=== PATIENT | female | born 1960 | race Caucasian/White ===

== ENCOUNTER 2018-02-04 13:11 | Emergency (ER) | payer BC ==
[2018-02-04] MEDS ORDERED: Sodium Chloride 0.9% 1,000 ML IV STA (13:35)
[2018-02-04] MEDS ORDERED: Sodium Chloride 0.9% 10 ML Syringe FLUSH PRN (13:35)
[2018-02-04] MEDS ORDERED: Diatrizoate Meglumine/Diatrizoate Sodium 37% 120 ML Bottle PO ONE (15:19)
[2018-02-04] MEDS ORDERED: Iopamidol 612 MG/ML 100 ML Bottle IVPUSH ONE (15:19)
--- NOTE | 2018-02-04 16:16 | EDM.PDOC ---
ED HPI GENERAL MEDICAL PROBLEM - General Chief Complaint: Cardiovascular Problem Stated Complaint: NAUSEA & DIZZY Time Seen by Provider: 02/04/18 13:26 Source of Information: Reports: Patient History Limitations: Reports: No Limitations - History of Present Illness INITIAL COMMENTS - FREE TEXT/NARRATIVE: The patient presents with dizziness and lightheaded feeling. She says this has been going on for a few days. She has been dealing with UTIs for the past few months. She had been on 2 antibiotic. One in November and one in December. She was recently put on some flagyal for another infection. I looked at her culture and it was gardnerella vaginosis. She also has some nausea but no vomiting. She had a little chest pain earlier today. She has some lower abdominal pain at times. She has no fever, chills, cough, or shortness of breath. Onset: Gradual Duration: Day(s): Location: Reports: Chest Quality: Reports: Pressure Severity: Mild Improves with: Reports: None Worsens with: Reports: None Associated Symptoms: Reports: Chest Pain, Nausea/Vomiting. Denies: Cough, Fever /Chills, Headaches, Shortness of Breath Bladder Pain Score (Numeric/FACES): 6 - Related Data Allergies Allergy/AdvReac Type Severity Reaction Status Date / Time ciprofloxacin [From Cipro] Allergy Anxiety Verified 02/04/18 13:23 Home Meds: Home Meds metroNIDAZOLE [Flagyl] 500 mg PO BID 02/04/18 [History] traMADol HCl [Ultram] 50 mg PO Q6HR PRN #20 tablet 02/04/18 [Rx] Past Medical History - Past Health History Medical/Surgical History: Denies Medical/Surgical History Social & Family History - Tobacco Use Smoking Status *Q: Current Every Day Smoker Years of Tobacco use: 30 Packs/Tins Daily: 0.5 - Recreational Drug Use Recreational Drug Use: No ED ROS GENERAL - Review of Systems Review Of Systems: See Below Constitutional: Reports: No Symptoms HEENT: Reports: No Symptoms Respiratory: Reports: No Symptoms Cardiovascular: Reports: Chest Pain Endocrine: Reports: No Symptoms GI/Abdominal: Reports: Abdominal Pain, Nausea. Denies: Diarrhea, Vomiting : Reports: No Symptoms Musculoskeletal: Reports: No Symptoms ED EXAM, GENERAL - Physical Exam Exam: See Below Exam Limited By: No Limitations General Appearance: Alert, No Apparent Distress Ears: Normal External Exam Nose: Normal Inspection Head: Atraumatic, Normocephalic Neck: Normal Inspection Respiratory/Chest: No Respiratory Distress, Lungs Clear, Normal Breath Sounds Cardiovascular: Regular Rate, Rhythm, No Edema, No Murmur GI/Abdominal: Soft, Non-Tender, No Organomegaly, No Mass Back Exam: Normal Inspection Extremities: Normal Inspection EKG INTERPRETATION EKG Date: 02/04/18 Time: 13:22 Rhythm: NSR Rate (Beats/Min): 74 [place]: Normal P-Wave: Present QRS: Normal ST-T: Normal QT: Normal Course - Vital Signs Last Recorded V/S: Last Vital Signs Temp 98.7 F 02/04/18 13:21 Pulse 86 02/04/18 13:21 Resp 16 02/04/18 13:21 BP Pulse Ox 98 02/04/18 13:21 - Orders/Labs/Meds Orders: Active Orders 24 hr Category Date Time Status EKG Documentation Completion [RC] STAT Care 02/04/18 13:35 Active Peripheral IV Care [RC] . DIRECTED Care 02/04/18 13:35 Active Abdomen Pelvis w Cont [CT] Stat Exams 02/04/18 13:35 Taken Sodium Chloride 0.9% [Saline Flush] Med 02/04/18 13:35 Active 10 ml FLUSH ASDIRECTED PRN Peripheral IV Insertion Adult [OM.PC] Stat Oth 02/04/18 13:35 Ordered Medication Orders Sodium Chloride (Saline Flush) 10 ml FLUSH ASDIRECTED PRN PRN Reason: Keep Vein Open Last Admin: 02/04/18 14:18 Dose: 10 ml Labs: Laboratory Tests 02/04/18 02/04/18 Range/Units 14:10 14:10 WBC 5.29 (3.98-10.04) K/mm3 RBC 4.23 (3.98-5.22) M/mm3 Hgb 14.2 (11.2-15.7) gm/L Hct 41.0 (34.1-44.9) % MCV 96.9 H (79.4-94.8) fl MCH 33.6 H (25.6-32.2) pg MCHC 34.6 (32.2-35.5) g/dl RDW Std Deviation 45.0 (36.4-46.3) fL Plt Count 201 (182-369) K/mm3 MPV 11.3 (9.4-12.3) fl Neut % (Auto) 62.3 (34.0-71.1) % Lymph % (Auto) 28.5 (19.3-51.7) % [place] % (Auto) 7.8 (4.7-12.5) % Eos % (Auto) 0.8 (0.7-5.8) Baso % (Auto) 0.4 (0.1-1.2) % Neut # (Auto) 3.30 (1.56-6.13) K/mm3 Lymph # (Auto) 1.51 (1.18-3.74) K/mm3 [place] # (Auto) 0.41 H (0.24-0.36) K/mm3 Eos # (Auto) 0.04 (0.04-0.36) K/mm3 Baso # (Auto) 0.02 (0.01-0.08) K/mm3 Sodium 142 (136-145) mEq/L Potassium 3.8 (3.5-5.1) mEq/L Chloride 107 (98-107) mEq/L Carbon Dioxide 25 (21-32) mEq/L Anion Gap 13.8 (5-15) BUN 16 (7-18) mg/dL Creatinine 0.8 (0.55-1.02) mg/dL Est Cr Clr Drug Dosing 71.50 mL/min Estimated GFR (MDRD) > 60 (>60) mL/min BUN/Creatinine Ratio 20.0 H (14-18) Glucose 88 (74-106) mg/dL Calcium 9.6 (8.5-10.1) mg/dL Total Bilirubin 0.4 (0.2-1.0) mg/dL AST 39 H (15-37) U/L ALT 50 (14-59) U/L Alkaline Phosphatase 95 (46-116) U/L Troponin I < 0.017 (0.00-0.056) ng/mL Total Protein 7.6 (6.4-8.2) g/dl Albumin 4.3 (3.4-5.0) g/dl Globulin 3.3 gm/dL Albumin/Globulin Ratio 1.3 (1-2) Lipase 220 (73-393) U/L Meds: Medications Generic Name Dose Route Start Last Admin Trade Name Freq PRN Reason Stop Dose Admin Sodium Chloride 10 ml 02/04/18 13:35 02/04/18 14:18 Saline Flush FLUSH 10 ml ASDIRECTED PRN Administration Keep Vein Open Discontinued Medications Generic Name Dose Route Start Last Admin Trade Name Tonio PRN Reason Stop Dose Admin Diatrizoate Meglum/Diatrizoate Sod 90 ml 02/04/18 15:19 02/04/18 15:40 Gastrografin 37% PO 02/04/18 15:20 90 ml ONETIME ONE Administration Sodium Chloride 1,000 mls @ 1,000 mls/hr 02/04/18 13:35 02/04/18 14:17 Normal Saline IV 02/04/18 14:34 1,000 mls/hr .BOLUS STA Administration Iopamidol 100 ml 02/04/18 15:19 02/04/18 15:40 Isovue-300 (61%) IVPUSH 02/04/18 15:20 100 ml ONETIME ONE Administration - Re-Assessments/Exams Free Text/Narrative Re-Assessment/Exam: 02/04/18 16:17 I ordered an IV NS 1L bolus, labs, and EKG. 02/04/18 16:18 Her CBC and CMP look good. His troponin is negative. His lipase is normal. Her CT shows nothing acute. 02/04/18 16:53 She still has the pressure at times in her pelvis. She has an US of her pelvis on Tuesday. I will have her keep that and follow up with [facility] or urology. Departure - Departure Time of Disposition: 16:55 Disposition: Home, Self-Care 01 Condition: Good Clinical Impression: Pelvic pain, Dizziness, Atypical chest pain UTI (urinary tract infection) Qualifiers: Urinary tract infection type: site unspecified Hematuria presence: without hematuria Qualified Code(s): N39.0 - Urinary tract infection, site not specified Prescriptions: traMADol HCl [Ultram] 50 mg PO Q6HR PRN #20 tablet PRN Reason: Pain Referrals: Marely Chirinos PA-C [Primary Care Provider] - Forms: ED Department Discharge Additional Instructions: Take the antibiotic as prescribed. Keep the ultrasound appointment. Follow up with Dr Santoro within a week preferable after the ultrasound. Please return if you are worse. Take the ultram 1 pill every 6 hours as needed for pain. Be careful it can make you constipated so drink plenty of fluids and take a stool softner. - My Orders Last 24 Hours: My Active Orders 02/04/18 13:35 EKG Documentation Completion [RC] STAT Peripheral IV Care [RC] . DIRECTED Abdomen Pelvis w Cont [CT] Stat Sodium Chloride 0.9% [Saline Flush] 10 ml FLUSH ASDIRECTED PRN Peripheral IV Insertion Adult [OM.PC] Stat - Assessment/Plan Last 24 Hours: My Active Orders 02/04/18 13:35 EKG Documentation Completion [RC] STAT Peripheral IV Care [RC] . DIRECTED Abdomen Pelvis w Cont [CT] Stat Sodium Chloride 0.9% [Saline Flush] 10 ml FLUSH ASDIRECTED PRN Peripheral IV Insertion Adult [OM.PC] Stat
--- NOTE | 2018-02-06 07:30 | CT ---
CT abdomen and pelvis Technique: Multiple axial sections were obtained from above the dome of the diaphragm inferiorly through the pubic symphysis. Intravenous and oral contrast was utilized. Delayed images were obtained through the bladder. Comparison: No prior abdominal or pelvic CT exam is available. Findings: Visualized lung bases are clear. Liver shows no focal parenchymal abnormality. Spleen appears within normal limits. Adrenal glands show no nodule. Pancreas is within normal limits. Surgical clips are seen from prior cholecystectomy. Kidneys show symmetric contrast enhancement without hydronephrosis or mass. Aorta shows mild atherosclerotic calcification without aneurysm. No retroperitoneal adenopathy or mesenteric abnormalities are seen. No pelvic mass or adenopathy is noted. No free fluid or inflammatory change is seen. Minimal sigmoid diverticulosis without diverticulitis is seen. Delayed images show contrast within the ureters. No free fluid or inflammatory change is seen. Appendix is not visualized with certainty. Bone window settings were reviewed which appear within normal limits for the patient's age. Impression: 1. Nothing acute is seen on CT study of the abdomen and pelvis. Diagnostic code #1 I agree with preliminary report from [facility], finalized at 02/04/18, 4:56 PM Central Time
== END 2018-02-04 17:09 | disposition home or self-care (01) ==
LOC: JD.ED 13:11
DX: R07.89 Other chest pain (principal); N39.0 Urinary tract infection, site not specified; R42 Dizziness and giddiness; F17.210 Nicotine dependence, cigarettes, uncomplicated; Z88.1 Allergy status to other antibiotic agents
CPT/HCPCS: 36415; 74177; 80053; 83690; 84484; 85025; 93005; 96360; 96361; 99284; J7040; J7050; Q9963; Q9967; 93010

== ENCOUNTER 2019-10-23 21:23 | Emergency (ER) | payer BC ==
--- NOTE | 2019-10-23 21:43 | EDM.PDOC ---
ED HPI GENERAL MEDICAL PROBLEM - General Chief Complaint: Abdominal Pain Stated Complaint: ABDOMINAL PAIN/BACK PAIN Time Seen by Provider: 10/23/19 21:43 - History of Present Illness INITIAL COMMENTS - FREE TEXT/NARRATIVE: 59-year-old female presents the emergency room with abdominal pain. This is been going on for several weeks and getting worse the patient has an intermittent history of having heartburn and reflux. Apparently she was using her Protonix on an as-needed basis and just recently started this to an every day basis she still having some pain in her upper mid abdomen that seems to radiate into her back. Patient has a history of a prior cholecystectomy. She is not have any nausea or vomiting denies black or tarry stools. She is not had any fevers or chills. Lower Abdomen Pain Score (Numeric/FACES): 8 - Related Data Allergies Allergy/AdvReac Type Severity Reaction Status Date / Time ciprofloxacin [From Cipro] Allergy Anxiety Verified 10/23/19 21:43 Home Meds: Home Meds Pantoprazole Sodium [Protonix] 40 mg PO DAILY 10/23/19 [History] Past Medical History - Past Health History Medical/Surgical History: Denies Medical/Surgical History ED ROS GENERAL - Review of Systems Review Of Systems: See Below Constitutional: Reports: No Symptoms HEENT: Reports: No Symptoms Respiratory: Reports: No Symptoms Cardiovascular: Reports: No Symptoms GI/Abdominal: Reports: Abdominal Pain. Denies: Black Stool, Bloody Stool, Constipation, Diarrhea, Nausea, Vomiting : Reports: No Symptoms Musculoskeletal: Reports: No Symptoms Skin: Reports: No Symptoms Neurological: Reports: No Symptoms Psychiatric: Reports: No Symptoms Hematologic/Lymphatic: Reports: No Symptoms Immunologic: Reports: No Symptoms ED EXAM, GI/ABD - Physical Exam Exam: See Below Exam Limited By: No Limitations General Appearance: Alert, No Apparent Distress Head: Atraumatic, Normocephalic Neck: Normal Inspection, Supple, Non-Tender, Full Range of Motion Respiratory/Chest: No Respiratory Distress, Lungs Clear, Normal Breath Sounds Cardiovascular: Regular Rate, Rhythm, No Edema, No Murmur GI/Abdominal Exam: Normal Bowel Sounds, Soft, Other (Mid epigastric discomfort and left upper quadrant discomfort to a lesser degree she is got some lower abdominal vague discomfort). No: Distended, Guarding, Rigid, Rebound Back Exam: Normal Inspection. No: CVA Tenderness (L), CVA Tenderness (R), Vertebral Tenderness Neurological: Alert, Oriented, Normal Cognition Course - Vital Signs Last Recorded V/S: Last Vital Signs Temp 36.4 C 10/23/19 22:47 Pulse 81 10/23/19 22:47 Resp 18 10/23/19 22:47 BP 92/61 10/23/19 22:47 Pulse Ox 94 L 10/23/19 22:47 - Orders/Labs/Meds Orders: Active Orders 24 hr Category Date Time Status Famotidine [Pepcid] Med 10/23/19 23:36 Once 40 mg PO ONETIME ONE Medication Orders Famotidine (Pepcid) 40 mg PO ONETIME ONE Stop: 10/23/19 23:37 Labs: Laboratory Tests 10/23/19 10/23/19 10/23/19 Range/Units 22:03 22:15 22:15 WBC 6.09 (3.98-10.04) K/mm3 RBC 3.92 L (3.98-5.22) M/mm3 Hgb 13.1 (11.2-15.7) gm/dl Hct 38.6 (34.1-44.9) % MCV 98.5 H (79.4-94.8) fl MCH 33.4 H (25.6-32.2) pg MCHC 33.9 (32.2-35.5) g/dl RDW Std Deviation 45.1 (36.4-46.3) fL Plt Count 212 (182-369) K/mm3 MPV 11.5 (9.4-12.3) fl Neut % (Auto) 50.0 (34.0-71.1) % Lymph % (Auto) 38.1 (19.3-51.7) % [place] % (Auto) 8.7 (4.7-12.5) % Eos % (Auto) 2.6 (0.7-5.8) Baso % (Auto) 0.3 (0.1-1.2) % Neut # (Auto) 3.04 (1.56-6.13) K/mm3 Lymph # (Auto) 2.32 (1.18-3.74) K/mm3 [place] # (Auto) 0.53 H (0.24-0.36) K/mm3 Eos # (Auto) 0.16 (0.04-0.36) K/mm3 Baso # (Auto) 0.02 (0.01-0.08) K/mm3 Sodium 141 (136-145) mEq/L Potassium 3.5 (3.5-5.1) mEq/L Chloride 106 (98-107) mEq/L Carbon Dioxide 21 (21-32) mEq/L Anion Gap 17.5 H (5-15) BUN 12 (7-18) mg/dL Creatinine 0.6 (0.55-1.02) mg/dL Est Cr Clr Drug Dosing 93.09 mL/min Estimated GFR (MDRD) > 60 (>60) mL/min BUN/Creatinine Ratio 20.0 H (14-18) Glucose 85 (74-106) mg/dL Calcium 9.0 (8.5-10.1) mg/dL Total Bilirubin 0.2 (0.2-1.0) mg/dL AST 17 (15-37) U/L ALT 29 (14-59) U/L Alkaline Phosphatase 107 (46-116) U/L Total Protein 7.3 (6.4-8.2) g/dl Albumin 3.8 (3.4-5.0) g/dl Globulin 3.5 gm/dL Albumin/Globulin Ratio 1.1 (1-2) Lipase 225 (73-393) U/L Urine Color Yellow (Yellow) Urine Appearance Clear (Clear) Urine pH 6.5 (5.0-8.0) Ur Specific [place] 1.015 (1.005-1.030) Urine Protein Negative (Negative) Urine Glucose (UA) Negative (Negative) Urine Ketones Negative (Negative) Urine Occult Blood Negative (Negative) Urine Nitrite Negative (Negative) Urine Bilirubin Negative (Negative) Urine Urobilinogen 0.2 (0.2-1.0) Ur Leukocyte Esterase Negative (Negative) Meds: Medications Generic Name Dose Route Start Last Admin Trade Name Freq PRN Reason Stop Dose Admin Famotidine 40 mg 10/23/19 23:36 Pepcid PO 10/23/19 23:37 ONETIME ONE Discontinued Medications Generic Name Dose Route Start Last Admin Trade Name Freq PRN Reason Stop Dose Admin Al Hydroxide/Mg Hydroxide 30 0 ml 10/23/19 22:02 10/23/19 22:07 ml/ Lidocaine HCl 15 ml PO 10/23/19 22:03 45 ml ONETIME ONE Administration Sucralfate 1 gm 10/23/19 22:39 10/23/19 22:46 Carafate PO 10/23/19 22:40 1 gm ONETIME ONE Administration - Re-Assessments/Exams Free Text/Narrative Re-Assessment/Exam: 10/23/19 23:36 Small improvement with a GI cocktail talking with the patient it somewhat concerning sounds like she has had stomach upset with omeprazole she is taking Protonix at this time. I am not sure this is doing the job for her. Attempted Carafate this did not help much. Talk to the patient detail we will add famotidine twice daily to her regimen and see if this helps she is in agreement to this. Discussed further work-up including imaging and the patient agrees to hold off on this at this point. Departure - Departure Time of Disposition: 23:37 Disposition: Home, Self-Care 01 Clinical Impression: Dyspepsia - Discharge Information Referrals: Marely Chirinos PA-C [Primary Care Provider] - Forms: ED Department Discharge Additional Instructions: Return to the emergency room with any questions problems or worsening symptoms. Start Pepcid, or famotidine, 20 mg twice daily. Follow-up in the clinic in 1 week to see if this is helping. Sepsis Event Note - Focused Exam Vital Signs: Vital Signs Temp Pulse Resp BP Pulse Ox 10/23/19 22:47 36.4 C 81 18 92/61 94 L 10/23/19 21:36 36.4 C 96 18 107/67 98 Date Exam was Performed: 10/23/19 Time Exam was Performed: 23:36 - My Orders Last 24 Hours: My Active Orders 10/23/19 23:36 Famotidine [Pepcid] 40 mg PO ONETIME ONE - Assessment/Plan Last 24 Hours: My Active Orders 10/23/19 23:36 Famotidine [Pepcid] 40 mg PO ONETIME ONE
[2019-10-23] MEDS ORDERED: Alum Hydrox/Mag Hydrox/Simeth 30 ML, Lidocaine 2% 15 ML PO ONE ×2 (22:02)
[2019-10-23] MEDS ORDERED: Sucralfate 1 GM Tab PO ONE (22:39)
[2019-10-23] MEDS ORDERED: Famotidine 20 MG Tab PO ONE (23:36)
== END 2019-10-23 23:46 | disposition home or self-care (01) ==
LOC: JD.ED 21:23
DX: R10.13 Epigastric pain (principal); Z88.1 Allergy status to other antibiotic agents
CPT/HCPCS: 36415; 80053; 81003; 83690; 85025; 99284; A9270; 99282

== ENCOUNTER 2019-11-13 08:49 | Day surgery (SDC) | payer BC ==
[~2019-11-13 08:49] MED LIST: Lactated Ringers 1,000 ML IV SCH; Lactated Ringers 1,000 ML ONE; Lidocaine 1% 6 ML ONE; Lidocaine 1%/Sod Bicarbonate in NS 8.4% 1 ML Syringe IDERM PRN; Propofol 200 MG/20 ML SDV ONE; Sodium Chloride 0.9% 10 ML Syringe FLUSH PRN; fentaNYL 100 MCG/2 ML SDV ONE
--- NOTE | 2019-11-13 08:57 | PCM.PREANE ---
Preanesthetic Assessment - Procedure Proposed Procedure: EGD and Colonoscopy - Anesthesia/Transfusion/Family Hx Anesthesia History: Prior Anesthesia Without Reaction Family History of Anesthesia Reaction: No Transfusion History: No Prior Transfusion(s) Intubation History: Unknown - Review of Systems General: No Symptoms Pulmonary: No Symptoms (Smoker: 3/4ppd times 30 years. ETOH: occasionally) Cardiovascular: No Symptoms, Dyspnea on Exertion Gastrointestinal: No Symptoms (GERD), Abdominal Pain (epigastric pain), Difficulty Swallowing Neurological: No Symptoms (Vertigo/History of lower back pain/lumbar radiculopathy history of), Dizziness Other: Reports: None, Sinus Problem, Neck Pain (cervical lymphadenopathy) - Physical Assessment NPO Status Date: 11/13/19 NPO Status Time: 20:30 Vital Signs: HR:67 B/P:108/66 Sat:97% Resp:16 Temp:97.5 Height: 1.65 m Weight: 59 kg ASA Class: 2 Mental Status: Alert & Oriented x3 Airway Class: Mallampati = 2 Dentition: Reports: Normal Dentition, Caries Thyro-Mental Finger Breadths: 3 Mouth Opening Finger Breadths: 3 ROM/Head Extension: Full Lungs: Clear to Auscultation, Normal Respiratory Effort Cardiovascular: Regular Rate, Regular Rhythm, No Murmurs - Lab Values: All labs reviewed and noted and within acceptable ranges to proceed with scheduled procedure. - Imaging/EKG Impressions: EKG: SR rate=75, consider left atrial hypertrophy, poor R wave progression - Allergies Allergies/Adverse Reactions: Allergies Allergy/AdvReac Type Severity Reaction Status Date / Time ciprofloxacin [From Cipro] Allergy Anxiety Verified 11/12/19 14:46 - Anesthesia Plan Pre-Op Medication Ordered: None - Acknowledgements Anesthesia Type Planned: MAC Pt an Appropriate Candidate for the Planned Anesthesia: Yes Alternatives and Risks of Anesthesia Discussed w Pt/Guardian: Yes Pt/Guardian Understands and Agrees with Anesthesia Plan: Yes PreAnesthesia Questionnaire - Past Health History Medical/Surgical History: Denies Medical/Surgical History HEENT History: Reports: Other (See Below) Other HEENT History: eustachian tube dysfunction, right eye problems, wears glasses Cardiovascular History: Reports: Other (See Below) Other Cardiovascular History: chest pain, chest pressure Respiratory History: Reports: None Gastrointestinal History: Reports: GERD, Other (See Below) Other Gastrointestinal History: epigastric pain, abdominal pain, esophagitis, nausea Genitourinary History: Reports: UTI, Recurrent, Other (See Below) Other Genitourinary History: hematuria, frequency, suprapubic pain SHIP/REC/DOC CONTROL History: Reports: Other (See Below) Other OB/BYN History: ovarian cyst, bacterial vaginosis Musculoskeletal History: Reports: Other (See Below) Other Musculoskeletal History: left rib pain, muscle pain, plantar fasciitis Neurological History: Reports: Vertigo, Other (See Below) Other Neuro History: dizziness, cervical lymphadenopathy, lumbar radiculopathy, hand numbness Psychiatric History: Reports: None Endocrine/Metabolic History: Reports: None Hematologic History: Reports: None Immunologic History: Reports: None Oncologic (Cancer) History: Reports: None Dermatologic History: Reports: Other (See Below) Other Dermatologic History: cat bite, dry skin, open nose wound - Infectious Disease History Infectious Disease History: Reports: None - Past Surgical History Head Surgeries/Procedures: Reports: None HEENT Surgical History: Reports: None Cardiovascular Surgical History: Reports: None Respiratory Surgical History: Reports: None GI Surgical History: Reports: Appendectomy, Cholecystectomy Female Surgical History: Reports: Other (See Below) Endocrine Surgical History: Reports: None Oncologic Surgical History: Reports: None Dermatological Surgical History: Reports: None - SUBSTANCE USE Smoking Status *Q: Current Every Day Smoker Days Per Week of Alcohol Use: 5 Number of Drinks Per Day: 3 Total Drinks Per Week: 15 Recreational Drug Use History: No - HOME MEDS Home Medications: Home Meds Pantoprazole Sodium [Protonix] 40 mg PO DAILY 10/23/19 [History] Fluticasone Propionate 1 spray NASBOTH DAILY 11/12/19 [History] Loratadine [Claritin] 10 mg PO DAILY 11/12/19 [History] - CURRENT (IN HOUSE) MEDS Current Meds: Current Medications Lactated Ringer's (Ringers, Lactated) 1,000 mls @ 125 mls/hr IV ASDIRECTED KAHLIL Stop: 11/13/19 23:00 Lidocaine/Sodium Bicarbonate (Buffered Lidocaine 1% In Ns 8.4%) 0.25 ml IDERM ONETIME PRN PRN Reason: Prior to IV Start Stop: 11/13/19 18:00 Sodium Chloride (Saline Flush) 10 ml FLUSH ASDIRECTED PRN PRN Reason: Keep Vein Open Stop: 11/13/19 18:00 Discontinued Medications Fentanyl (Sublimaze) Confirm Administered Dose 100 mcg .ROUTE .STK-MED ONE Stop: 11/13/19 08:20 Lidocaine HCl (Xylocaine-Mpf 1%) Confirm Administered Dose 6 mls @ as directed .ROUTE .STK-MED ONE Stop: 11/13/19 08:19 Lactated Ringer's (Ringers, Lactated) Confirm Administered Dose 1,000 mls @ as directed .ROUTE .STK-MED ONE Stop: 11/13/19 08:19 Propofol (Diprivan 20 Ml) Confirm Administered Dose 400 mg .ROUTE .STK-MED ONE Stop: 11/13/19 08:19
--- NOTE | 2019-11-13 09:38 | PCM.PRNOTE ---
- Free Text/Narrative Note: Date: 11/13/2019 Procedure: diagnostic esophagogastroduodenoscopy, screening colonoscopy Indication: chest pain, heartburn, dysphagia Findings: laryngeal edema. Hypotensive LES. Small sliding hiatal hernia. Diverticular disease. Small polyp in descending colon. Detailed Report: The patient was taken to the endoscopy suite and placed in left lateral decubitus position. Time out was performed and monitored anesthesia care initiated. A bite block was placed and the endoscope was inserted orally. The oropharynx was difficult to navigate past, in some part due to what appeared to be laryngeal edema. The scope was advanced to the second portion of the duodenum easily. The duodenum and stomach appeared normal. Sample biopsies were taken with forceps of duodenal, antral and gastric body mucosa. On retroflexion , a small sliding hiatal hernia was noted. The LES appeared patulous from within the distal esophagus. The Z line appeared normal. A sample biopsy of distal esophagus was obtained. There was no gross evidence of reflux esophagitis or Guerrier disease. The remainder of the esophagus looked normal. Next, attention was turned to colonoscopy. The anus appeared normal, and digital rectal exam was unremarkable. The colonoscope was inserted anally and advanced to the cecum. The ileocecal valve was visualized. The prep was very good. The scope was slowly withdrawn as mucosal surfaces were carefully inspected. A small polyp was noted in the descending colon, this was biopsied with hot forceps. There was diverticular disease of the sigmoid colon. On retroflexion within the rectum, there appeared to be small hypertrophied anal papillae. Air was evacuated and the scope completely withdrawn. The patient tolerated the procedure well. Jamey Valle MD General Surgery
[2019-11-13] MEDS ORDERED: Propofol 200 MG/20 ML SDV ONE (10:19)
[2019-11-13] MEDS ORDERED: Simethicone Drops 40 MG/0.6 ML 30 ML Bottle ONE (10:20)
--- NOTE | 2019-11-13 10:54 | PCM48HPAN ---
Post Anesthesia Note - EVALUATION WITHIN 48HRS OF ANESTHETIC Vital Signs in Normal Range: Yes Patient Participated in Evaluation: Yes Respiratory Function Stable: Yes Airway Patent: Yes Cardiovascular Function Stable: Yes Hydration Status Stable: Yes Pain Control Satisfactory: Yes Nausea and Vomiting Control Satisfactory: Yes Mental Status Recovered: Yes Vital Signs: Last Vital Signs Temp 97.0 F 11/13/19 10:45 Pulse 68 11/13/19 10:45 Resp 16 11/13/19 10:45 BP 103/60 11/13/19 10:45 Pulse Ox 94 L 11/13/19 10:45 1045 68 16 97.0 93% 103/60
== END 2019-11-13 11:15 | disposition home or self-care (01) ==
LOC: JD.SDS 08:49
PROVIDERS: ATTEND Surgery
DX: Z12.11 Encounter for screening for malignant neoplasm of colon (principal); K44.9 Diaphragmatic hernia without obstruction or gangrene; K57.30 Diverticulosis of large intestine without perforation or abscess without bleeding; D12.4 Benign neoplasm of descending colon; K22.8 Other specified diseases of esophagus; K62.89 Other specified diseases of anus and rectum; J38.4 Edema of larynx; K21.9 Gastro-esophageal reflux disease without esophagitis; F17.210 Nicotine dependence, cigarettes, uncomplicated; Z88.8 Allergy status to other drugs, medicaments and biological substances; Z79.899 Other long term (current) drug therapy; Z90.49 Acquired absence of other specified parts of digestive tract
CPT/HCPCS: 43239; 45384; A9270; J2001; J2704; J3010; J7120; 00812

== ENCOUNTER 2020-10-14 07:26 | Emergency (ER) | payer BC ==
[2020-10-14] MEDS ORDERED: Sodium Chloride 0.9% 10 ML Syringe FLUSH PRN (07:33)
[2020-10-14] MEDS ORDERED: Sodium Chloride 0.9% 1,000 ML IV SCH (07:45)
--- NOTE | 2020-10-14 08:17 | CT ---
CT abdomen and pelvis Technique: Multiple axial sections were obtained from above the dome of the diaphragm inferiorly through the pubic symphysis. Intravenous and oral contrast were not utilized. Study has been performed as a ureteral stone protocol. Findings: Left renal pelvis is slightly dilated. This finding is caused by an obstructing left ureteral stone measuring approximately 7 mm located within the proximal left ureter. No additional ureteral calcifications are seen. No renal calculi are seen. Visualized lung bases show nothing acute. Noncontrast appearance of the liver shows no focal abnormality. Spleen appears within normal limits. Adrenal glands show no nodule. Surgical clips are seen from prior cholecystectomy. No discrete pancreatic finding is seen. Abdominal aorta shows mild atherosclerotic calcification with no aneurysm. No retroperitoneal adenopathy or mesenteric abnormality is appreciated. No pelvic mass or adenopathy is appreciated. Appendix is not definitely visualized. Bone window settings were reviewed which appear within normal limits for the patient's age. Minimal fat-containing umbilical hernia is incidentally noted. Impression: 1. Mildly dilated left renal pelvis which is caused by an obstructing 7 mm stone within the proximal left ureter. 2. No other ureteral calculi or renal calculi are seen. 3. Other findings believed to be incidental as noted above. Diagnostic code #3
[2020-10-14] MEDS ORDERED: Metoclopramide 10 MG/2 ML SDV IVPUSH ONE (08:51)
[2020-10-14] MEDS ORDERED: Ketorolac 30 MG/ML SDV IVPUSH ONE (08:51)
--- NOTE | 2020-10-14 09:47 | EDM.PDOC ---
ED HPI GENERAL MEDICAL PROBLEM - General Chief Complaint: Flank Pain Stated Complaint: [facility] Time Seen by Provider: 10/14/20 07:28 Source of Information: Reports: Patient, EMS History Limitations: Reports: No Limitations - History of Present Illness INITIAL COMMENTS - FREE TEXT/NARRATIVE: The patient presents by [facility] for left flank pain. This started early this morning. She also has nausea and vomiting with it. She has no fever but she did have chills. She has no chest pain or cough. She has some left sided abdominal pain. She has no history of kidney stones. She has no dysuria or hematuria. She was given dilaudid 1mg IV and zofran 4mg IV. The pain and nausea is better. Onset: Sudden Duration: Hour(s): Location: Reports: Abdomen, Back Quality: Reports: Sharp Severity: Severe Improves with: Reports: Medication Worsens with: Reports: None Associated Symptoms: Reports: Fever/Chills, Nausea/Vomiting. Denies: Chest Pain, Cough, Headaches, Shortness of Breath Left Flank Pain Score (Numeric/FACES): 7 - Related Data Allergies Allergy/AdvReac Type Severity Reaction Status Date / Time ciprofloxacin [From Cipro] Allergy Anxiety Verified 10/14/20 07:36 Home Meds: Home Meds Pantoprazole Sodium [Protonix] 40 mg PO DAILY 10/23/19 [History] Hydrocodone/Acetaminophen [Hydrocodone-Acetamin 5-325 mg] 1 - 2 each PO Q6HR PRN #20 tablet 10/14/20 [Rx] Tamsulosin HCl [Flomax] 0.4 mg PO DAILY #7 cap.er.24h 10/14/20 [Rx] cephALEXin [Keflex] 500 mg PO BID #14 cap 10/14/20 [Rx] Past Medical History - Past Health History Medical/Surgical History: Denies Medical/Surgical History HEENT History: Reports: Other (See Below) Other HEENT History: eustachian tube dysfunction, right eye problems, wears glasses Cardiovascular History: Reports: Other (See Below) Other Cardiovascular History: chest pain, chest pressure Respiratory History: Reports: None Gastrointestinal History: Reports: GERD Other Gastrointestinal History: epigastric pain, abdominal pain, esophagitis, nausea Genitourinary History: Reports: UTI, Recurrent, Other (See Below) Other Genitourinary History: hematuria, frequency, suprapubic pain [employer]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: Other (See Below) 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 Musculoskeletal History: Reports: Other (See Below) Other Musculoskeletal History: left rib pain, muscle pain, plantar fasciitis Neurological History: Reports: Vertigo, Other (See Below) Other Neuro History: dizziness, cervical lymphadenopathy, lumbar radiculopathy, hand numbness Psychiatric History: Reports: None Endocrine/Metabolic History: Reports: None Hematologic History: Reports: None Immunologic History: Reports: None Oncologic (Cancer) History: Reports: None Dermatologic History: Reports: Other (See Below) Other Dermatologic History: cat bite, dry skin, open nose wound - Infectious Disease History Infectious Disease History: Reports: None - Past Surgical History Head Surgeries/Procedures: Reports: None Respiratory Surgical History: Reports: None GI Surgical History: Reports: Appendectomy, Cholecystectomy, Colonoscopy, EGD Oncologic Surgical History: Reports: None Social & Family History - Tobacco Use Tobacco Use Status *Q: Current Every Day Tobacco User Years of Tobacco use: 35 Packs/Tins Daily: 1 - Caffeine Use Caffeine Use: Reports: Coffee - Recreational Drug Use Recreational Drug Use: No ED ROS GENERAL - Review of Systems Review Of Systems: See Below Constitutional: Reports: Chills. Denies: Fever HEENT: Reports: No Symptoms Respiratory: Reports: No Symptoms Cardiovascular: Reports: No Symptoms Endocrine: Reports: No Symptoms GI/Abdominal: Reports: Abdominal Pain, Nausea, Vomiting. Denies: Diarrhea : Reports: Flank Pain (left). Denies: Dysuria, Hematuria Musculoskeletal: Reports: Back Pain ED EXAM, GI/ABD - Physical Exam Exam: See Below Exam Limited By: No Limitations General Appearance: Alert, No Apparent Distress Ears: Normal External Exam Nose: Normal Inspection Head: Atraumatic, Normocephalic Neck: Normal Inspection Respiratory/Chest: No Respiratory Distress, Lungs Clear, Normal Breath Sounds Cardiovascular: Regular Rate, Rhythm, No Edema, No Murmur GI/Abdominal Exam: Soft, No Organomegaly, No Mass, Tender (Mild tenderness to the left abdomen) Back Exam: CVA Tenderness (L) (mild) Extremities: Normal Inspection Course - Vital Signs Last Recorded V/S: Last Vital Signs Temp 97.3 F 10/14/20 07:33 Pulse 74 10/14/20 07:33 Resp 16 10/14/20 07:33 BP 120/76 10/14/20 07:33 Pulse Ox 96 10/14/20 07:33 - Orders/Labs/Meds Orders: Active Orders 24 hr Category Date Time Status Peripheral IV Care [RC] . DIRECTED Care 10/14/20 07:33 Active CULTURE URINE [RM] Stat Lab 10/14/20 09:44 Received Sodium Chloride 0.9% [Normal Saline] 1,000 ml Med 10/14/20 07:45 Active IV ASDIRECTED Sodium Chloride 0.9% [Saline Flush] Med 10/14/20 07:33 Active 10 ml FLUSH ASDIRECTED PRN Peripheral IV Insertion Adult [OM.PC] Stat Oth 10/14/20 07:33 Ordered Medication Orders Sodium Chloride (Normal Saline) 1,000 mls @ 125 mls/hr IV ASDIRECTED KAHLIL Sodium Chloride (Sodium Chloride 0.9% 10 Ml Syringe) 10 ml FLUSH ASDIRECTED PRN PRN Reason: Keep Vein Open Labs: Laboratory Tests 10/14/20 10/14/20 10/14/20 Range/Units 07:50 07:50 08:34 WBC 10.22 H (3.98-10.04) K/mm3 RBC 3.76 L (3.98-5.22) M/mm3 Hgb 12.6 (11.2-15.7) gm/dl Hct 37.1 (34.1-44.9) % MCV 98.7 H (79.4-94.8) fl MCH 33.5 H (25.6-32.2) pg MCHC 34.0 (32.2-35.5) g/dl RDW Std Deviation 44.7 (36.4-46.3) fL Plt Count 195 (182-369) K/mm3 MPV 11.0 (9.4-12.3) fl Neut % (Auto) 88.0 H (34.0-71.1) % Lymph % (Auto) 7.9 L (19.3-51.7) % Webb % (Auto) 3.6 L (4.7-12.5) % Eos % (Auto) 0.2 L (0.7-5.8) Baso % (Auto) 0.2 (0.1-1.2) % Neut # (Auto) 8.99 H (1.56-6.13) K/mm3 Lymph # (Auto) 0.81 L (1.18-3.74) K/mm3 Webb # (Auto) 0.37 H (0.24-0.36) K/mm3 Eos # (Auto) 0.02 L (0.04-0.36) K/mm3 Baso # (Auto) 0.02 (0.01-0.08) K/mm3 Manual Slide Review Abnormal smear Sodium 144 (136-145) mEq/L Potassium 3.7 (3.5-5.1) mEq/L Chloride 110 H (98-107) mEq/L Carbon Dioxide 23 (21-32) mEq/L Anion Gap 14.7 (5-15) BUN 16 (7-18) mg/dL Creatinine 0.6 (0.55-1.02) mg/dL Est Cr Clr Drug Dosing 91.96 mL/min Estimated GFR (MDRD) > 60 (>60) mL/min BUN/Creatinine Ratio 26.7 H (14-18) Glucose 112 H (74-106) mg/dL Calcium 8.6 (8.5-10.1) mg/dL Total Bilirubin 0.3 (0.2-1.0) mg/dL AST 14 L (15-37) U/L ALT 24 (14-59) U/L Alkaline Phosphatase 101 (46-116) U/L Total Protein 6.8 (6.4-8.2) g/dl Albumin 3.7 (3.4-5.0) g/dl Globulin 3.1 gm/dL Albumin/Globulin Ratio 1.2 (1-2) Lipase 119 (73-393) U/L Urine Color Yellow (Yellow) Urine Appearance Slt cloudy H (Clear) Urine pH 7.0 (5.0-8.0) Ur Specific [place] 1.020 (1.005-1.030) Urine Protein 1+ H (Negative) Urine Glucose (UA) Negative (Negative) Urine Ketones 2+ H (Negative) Urine Occult Blood 2+ H (Negative) Urine Nitrite Positive H (Negative) Urine Bilirubin Negative (Negative) Urine Urobilinogen 1.0 (0.2-1.0) Ur Leukocyte Esterase 1+ H (Negative) Urine RBC 30-40 H (0-5) /hpf Urine WBC 20-30 H (0-5) /hpf Urine WBC Clumps Few (NOT SEEN) /hpf Ur Squamous Epith Cells 20-30 H (0-5) /hpf Urine Bacteria Many H (FEW) /hpf Urine Mucus Many H (FEW) /hpf 10/14/20 Range/Units 09:44 WBC (3.98-10.04) K/mm3 RBC (3.98-5.22) M/mm3 Hgb (11.2-15.7) gm/dl Hct (34.1-44.9) % MCV (79.4-94.8) fl MCH (25.6-32.2) pg MCHC (32.2-35.5) g/dl RDW Std Deviation (36.4-46.3) fL Plt Count (182-369) K/mm3 MPV (9.4-12.3) fl Neut % (Auto) (34.0-71.1) % Lymph % (Auto) (19.3-51.7) % Webb % (Auto) (4.7-12.5) % Eos % (Auto) (0.7-5.8) Baso % (Auto) (0.1-1.2) % Neut # (Auto) (1.56-6.13) K/mm3 Lymph # (Auto) (1.18-3.74) K/mm3 Webb # (Auto) (0.24-0.36) K/mm3 Eos # (Auto) (0.04-0.36) K/mm3 Baso # (Auto) (0.01-0.08) K/mm3 Manual Slide Review Sodium (136-145) mEq/L Potassium (3.5-5.1) mEq/L Chloride (98-107) mEq/L Carbon Dioxide (21-32) mEq/L Anion Gap (5-15) BUN (7-18) mg/dL Creatinine (0.55-1.02) mg/dL Est Cr Clr Drug Dosing mL/min Estimated GFR (MDRD) (>60) mL/min BUN/Creatinine Ratio (14-18) Glucose (74-106) mg/dL Calcium (8.5-10.1) mg/dL Total Bilirubin (0.2-1.0) mg/dL AST (15-37) U/L ALT (14-59) U/L Alkaline Phosphatase (46-116) U/L Total Protein (6.4-8.2) g/dl Albumin (3.4-5.0) g/dl Globulin gm/dL Albumin/Globulin Ratio (1-2) Lipase (73-393) U/L Urine Color Yellow (Yellow) Urine Appearance Clear (Clear) Urine pH 6.0 (5.0-8.0) Ur Specific [place] > or = 1.030 (1.005-1.030) Urine Protein 1+ H (Negative) Urine Glucose (UA) Negative (Negative) Urine Ketones 2+ H (Negative) Urine Occult Blood 2+ H (Negative) Urine Nitrite Positive H (Negative) Urine Bilirubin Negative (Negative) Urine Urobilinogen 0.2 (0.2-1.0) Ur Leukocyte Esterase 1+ H (Negative) Urine RBC 20-30 H (0-5) /hpf Urine WBC 20-30 H (0-5) /hpf Urine WBC Clumps Rare (NOT SEEN) /hpf Ur Squamous Epith Cells 10-20 H (0-5) /hpf Urine Bacteria Many H (FEW) /hpf Urine Mucus Many H (FEW) /hpf Meds: Medications Generic Name Dose Route Start Last Admin Trade Name Freq PRN Reason Stop Dose Admin Sodium Chloride 1,000 mls @ 125 mls/hr 10/14/20 07:45 Normal Saline IV ASDIRECTED KAHLIL Sodium Chloride 10 ml 10/14/20 07:33 Sodium Chloride 0.9% 10 Ml Syringe FLUSH ASDIRECTED PRN Keep Vein Open Discontinued Medications Generic Name Dose Route Start Last Admin Trade Name Freq PRN Reason Stop Dose Admin Ketorolac Tromethamine 30 mg 10/14/20 08:51 10/14/20 09:15 Ketorolac 30 Mg/Ml Sdv IVPUSH 10/14/20 08:52 30 mg ONETIME ONE Administration Metoclopramide HCl 10 mg 10/14/20 08:51 10/14/20 09:15 Metoclopramide 10 Mg/2 Ml Sdv IVPUSH 10/14/20 08:52 10 mg ONETIME ONE Administration - Re-Assessments/Exams Free Text/Narrative Re-Assessment/Exam: 10/14/20 09:49 I ordered an IV NS 125mL/hr, labs, UA and a CT of her abdomen and pelvis without IV and oral contrast. Her WBC was slightly elevated at 10.22. Her lipase was normal. Her CMP looks good. 10/14/20 09:[address] shows mildly dilated left renal pelvis which is caused b an obstructing 7mm stone within the proximal left ureter. No other ureteral calculi or renal calculi are seen. Other findings believed to be incidental. Her UA looks contaminated. She will try again. She has more pain and nausea so I ordered toradol 30mg IV and reglan 10mg IV. 10/14/20 10:52 Her UA looks contaminated. She was able to get us another urine sample and that still appeared contaminated with epithelial cells. The rest of the UA and micro was the same as the prior one. I called [facility] in [place] and talked with Dr Barakat and he felt it was contaminated. He wanted her on some antibiotics control the pain and have her follow up in the clinic. Departure - Departure Time of Disposition: 11:05 Disposition: Home, Self-Care 01 Condition: Good Clinical Impression: UTI, Urinary tract infectious disease, Kidney stone on left side, Ureteral calculus, left, Ureteral colic - Discharge Information *PRESCRIPTION DRUG MONITORING PROGRAM REVIEWED*: Not Applicable *COPY OF PRESCRIPTION DRUG MONITORING REPORT IN PATIENT KEON: Not Applicable Prescriptions: Tamsulosin HCl [Flomax] 0.4 mg PO DAILY #7 cap.er.24h Hydrocodone/Acetaminophen [Hydrocodone-Acetamin 5-325 mg] 1 - 2 each PO Q6HR PRN #20 tablet PRN Reason: Pain cephALEXin [Keflex] 500 mg PO BID #14 cap Referrals: Lakhwinder Storm PA-C [Primary Care Provider] - Stephanie Barakat MD [Ordering Only Provider] - 1 Week Forms: ED Department Discharge Additional Instructions: Drink plenty of water. Take the keflex 2 times per day for 7 days. Take the flomax daily. Take tylenol or motrin for pain. If that does not help, try the hydrocodone. Please return if you are worse. Follow up with Dr Barakat on Tuesday at 11am [place] time. Check in at 10am because they have an x-ray scheduled at 10:30am [place] time. Sepsis Event Note (ED) - Evaluation Sepsis Screening Result: No Definite Risk - Focused Exam Vital Signs: Vital Signs Temp Pulse Resp BP Pulse Ox 10/14/20 07:33 97.3 F 74 16 120/76 96 - My Orders Last 24 Hours: My Active Orders 10/14/20 07:33 Peripheral IV Care [RC] . DIRECTED Sodium Chloride 0.9% [Saline Flush] 10 ml FLUSH ASDIRECTED PRN Peripheral IV Insertion Adult [OM.PC] Stat 10/14/20 07:45 Sodium Chloride 0.9% [Normal Saline] 1,000 ml IV ASDIRECTED 10/14/20 09:44 CULTURE URINE [RM] Stat - Assessment/Plan Last 24 Hours: My Active Orders 10/14/20 07:33 Peripheral IV Care [RC] . DIRECTED Sodium Chloride 0.9% [Saline Flush] 10 ml FLUSH ASDIRECTED PRN Peripheral IV Insertion Adult [OM.PC] Stat 10/14/20 07:45 Sodium Chloride 0.9% [Normal Saline] 1,000 ml IV ASDIRECTED 10/14/20 09:44 CULTURE URINE [RM] Stat
== END 2020-10-14 11:45 | disposition home or self-care (01) ==
LOC: JD.ED 07:26
DX: N20.2 Calculus of kidney with calculus of ureter (principal); N39.0 Urinary tract infection, site not specified; K21.9 Gastro-esophageal reflux disease without esophagitis; Z72.0 Tobacco use; Z88.1 Allergy status to other antibiotic agents; Z79.899 Other long term (current) drug therapy
CPT/HCPCS: 36415; 74176; 80053; 81001; 83690; 85025; 87086; 87088; 87186; 96374; 96375; 99285; J1885; J2765; 99284

== ENCOUNTER 2024-03-29 08:30 | Day surgery (SDC) | payer BC ==
[2024-03-29] MEDS: Polymyxin B/Trimethoprim 10 ML Bottle EYERT SCH (08:57)
[2024-03-29] MEDS: Brimonidine 0.2% Ophth Soln 5 ML Bottle EYERT SCH (09:05)
[2024-03-29] MEDS: Phenylephrine 2.5% Ophth Soln 2 ML Bot EYERT SCH (09:07)
[2024-03-29] MEDS: Tropicamide 1% Ophth Soln 3 ML Bottle EYERT SCH (09:12)
[2024-03-29] MEDS: Tetracaine HCl/PF 0.5% 4 ML Bottle EYEBOTH SCH (10:30)
[2024-03-29] MEDS: Lidocaine 1% PF 2 ML SDV INJECT SCH (10:42)
[2024-03-29] MEDS: Pilocarpine 4% Ophth Soln 15 ML Bot EYERT SCH (11:00)
[2024-03-29] MEDS: Cefuroxime 10 MG/ML SYRINGE EYERT SCH (11:00)
== END 2024-03-29 11:13 | disposition home or self-care (01) ==
LOC: JD.SDS 08:30
PROVIDERS: ATTEND Ophthalmology
DX: H25.813 Combined forms of age-related cataract, bilateral (principal); H21.81 Floppy iris syndrome; H21.41 Pupillary membranes, right eye; H43.813 Vitreous degeneration, bilateral; H11.823 Conjunctivochalasis, bilateral; H02.831 Dermatochalasis of right upper eyelid; H02.834 Dermatochalasis of left upper eyelid; H35.3131 Nonexudative age-related macular degeneration, bilateral, early dry stage; H35.363 Drusen (degenerative) of macula, bilateral; H57.813 Brow ptosis, bilateral; Z79.899 Other long term (current) drug therapy
CPT/HCPCS: 66982; A9270; J0697; J3490

== ENCOUNTER 2024-05-03 11:19 | Day surgery (SDC) | payer BC ==
[2024-05-03] MEDS: Polymyxin B/Trimethoprim 10 ML Bottle EYELF SCH (12:51)
[2024-05-03] MEDS: Brimonidine 0.2% Ophth Soln 5 ML Bottle EYELF SCH (12:56)
[2024-05-03] MEDS: Phenylephrine 2.5% Ophth Soln 2 ML Bot EYELF SCH (13:01)
[2024-05-03] MEDS: Tropicamide 1% Ophth Soln 3 ML Bottle EYELF SCH (13:08)
[2024-05-03] MEDS: Tetracaine HCl/PF 0.5% 4 ML Bottle EYEBOTH SCH (13:44)
[2024-05-03] MEDS: Lidocaine 1% PF 2 ML SDV INJECT SCH (14:05)
[2024-05-03] MEDS: Pilocarpine 4% Ophth Soln 15 ML Bot EYELF SCH (14:21)
[2024-05-03] MEDS: Cefuroxime 10 MG/ML SYRINGE EYELF SCH (14:21)
== END 2024-05-03 14:34 | disposition home or self-care (01) ==
LOC: JD.SDS 11:19
PROVIDERS: ATTEND Ophthalmology
DX: H25.812 Combined forms of age-related cataract, left eye (principal); H21.81 Floppy iris syndrome; K21.9 Gastro-esophageal reflux disease without esophagitis; F17.200 Nicotine dependence, unspecified, uncomplicated; Z79.899 Other long term (current) drug therapy
CPT/HCPCS: 66982; A9270; J0697; J3490; V2632

== ENCOUNTER 2025-04-30 07:27 | Day surgery (SDC) | payer BC ==
[~2025-04-30 07:27] MED LIST changes: -Lactated Ringers 1,000 ML IV SCH; -Lactated Ringers 1,000 ML ONE; -Lidocaine 1% 6 ML ONE; -Lidocaine 1%/Sod Bicarbonate in NS 8.4% 1 ML Syringe IDERM PRN; -Propofol 200 MG/20 ML SDV ONE; +Sodium Chloride 0.9% 10 ML Syringe FLUSH SCH; -fentaNYL 100 MCG/2 ML SDV ONE
[2025-04-30] MEDS: Lactated Ringers 1,000 ML IV SCH (07:50)
[2025-04-30] MEDS ORDERED: Propofol 200 MG/20 ML SDV ONE ×3 (08:22→08:51)
== END 2025-04-30 09:55 | disposition home or self-care (01) ==
LOC: JD.SDS 07:27
PROVIDERS: ATTEND Surgery
DX: Z12.11 Encounter for screening for malignant neoplasm of colon (principal); K31.89 Other diseases of stomach and duodenum; K44.9 Diaphragmatic hernia without obstruction or gangrene; K21.00 Gastro-esophageal reflux disease with esophagitis, without bleeding; K57.30 Diverticulosis of large intestine without perforation or abscess without bleeding; F17.210 Nicotine dependence, cigarettes, uncomplicated; Z88.8 Allergy status to other drugs, medicaments and biological substances; Z79.899 Other long term (current) drug therapy; Z86.0101 Personal history of adenomatous and serrated colon polyps
CPT/HCPCS: 43239; 45378; C9777; J2704; J7120